=== PATIENT | male | born 1990 | race Hispanic/Latino ===

== ENCOUNTER 2019-08-28 00:59 | Emergency (ER) | payer SELFPAY ==
[2019-08-28] MEDS ORDERED: SODIUM CHLORIDE 0.9% 1000 ML 1,000 ML IV ONE (01:48)
[2019-08-28] MEDS ORDERED: ONDANSETRON 4 MG/2 ML INJ IV ONE (01:48)
--- NOTE | 2019-08-28 01:54 | Emergency Department Report ---
HPI - General Chief Complaint: Nausea/Vomiting/Diarrhea Time Seen by Provider: 08/28/19 01:42 - HPI HPI: Room 24 The patient is a 29-year-old male presenting with a chief complaint of heroin use. The patient was reportedly at work and began vomiting and Tota supervising did not feel well so somebody called 911. The patient states that he was "high." When asked how his feeling down the patient smiles and states he feels like dancing. The patient states he is "done with drugs." Patient requests detox. Patient remembers vomiting at work but denies nausea currently Location: [See above] Duration: [See above] Quality: [See above] Severity: [See above] Timing: [See above] Context: [See above] Modifying factors: [See above] Associated signs and symptoms: [see above] ED Past Medical Hx - Past Medical History Additional medical history: Lhxns-Bilampuzf-Lfobn status post ablation - Surgical History Additional Surgical History: Cardiac ablation - Family History Family history: no significant - Social History Smoking Status: Current Every Day Smoker (4 cigarettes daily) Substance Use Type: Heroin (snorts) - Medications Home Medications: Home Medications Medication Instructions Recorded Confirmed Last Taken Type Unobtainable 08/29/19 08/29/19 Unknown History ED Review of Systems ROS: Stated complaint: LETHARGIC Other details as noted in HPI Constitutional: no symptoms reported Eyes: denies: eye pain ENT: denies: throat pain Respiratory: no symptoms reported Cardiovascular: denies: chest pain Endocrine: no symptoms reported Gastrointestinal: nausea, vomiting Physical Exam - Physical Exam Physical Exam: GENERAL: The patient is well-developed well-nourished male lying on stretcher not appearing to be in acute distress. Patient appears under the influence of controlled substances HEENT: Normocephalic. Atraumatic. Extraocular motions are intact. Patient has moist mucous membranes. NECK: Supple. Trachea midline CHEST/LUNGS: Clear to auscultation. There is no respiratory distress noted. HEART/CARDIOVASCULAR: Regular. There is no tachycardia. There is no gallop rub or murmur. ABDOMEN: Abdomen is soft, nontender. Patient has normal bowel sounds. There is no abdominal distention. SKIN: There is no rash. There is no edema. There is no diaphoresis. NEURO: The patient is awake and oriented. The patient is cooperative. The patient has no focal neurologic deficits. The patient has normal speech MUSCULOSKELETAL: There is no evidence of acute injury. ED Medical Decision Making - Lab Data Result diagrams: 08/28/19 02:00 08/28/19 02:00 - EKG Data -: EKG Interpreted by Me EKG shows normal: sinus rhythm Rate: tachycardia (117 bpm) - EKG Data When compared to previous EKG there are: previous EKG unavailable Interpretation: nonspecific ST-T wave lena - Differential Diagnosis heroin abuse Critical care attestation.: If time is entered above; I have spent that time in minutes in the direct care of this critically ill patient, excluding procedure time. ED Disposition Clinical Impression: Heroin abuse Disposition: DC-01 TO HOME OR SELFCARE Is pt being admited?: No Does the pt Need Aspirin: No Condition: Stable Referrals: PRIMARY CARE, [Primary Care Provider] - 3[facility] Days [facility]
[2019-08-28 02:17] LABS: Basophils % (Auto) 0.2 % (0.0-1.8); Eosinophils % (Auto) 0.1 % (0.0-4.3); Hematocrit 43.4 % (35.5-45.6); Hemoglobin 14.6 gm/dl (11.8-15.2); Lymphocytes # (Auto) 1.1 K/mm3 (1.2-5.4); Lymphocytes % (Auto) 7.7 % (13.4-35.0); Mean Corpuscular HGB Conc 34 % (32-34); Mean Corpuscular Volume 99 fl (84-94); Monocytes # (Auto) 0.8 K/mm3 (0.0-0.8); Monocytes % (Auto) 5.6 % (0.0-7.3); Platelet Count 175 K/mm3 (140-440); Red Blood Count 4.41 M/mm3 (3.65-5.03); Red Cell Distribution Width 13.6 % (13.2-15.2)
[2019-08-28 02:40] LABS: BUN/Creatinine Ratio 14; Blood Urea Nitrogen 10 mg/dL (9-20); Calcium 8.6 mg/dL (8.4-10.2); Hemolysis Index 6
[2019-08-28 05:09] VITALS: BP 144/86
== END 2019-08-28 07:25 | disposition home or self-care (01) ==
LOC: ED 00:59
DX: F11.10 Opioid abuse, uncomplicated (principal); R11.2 Nausea with vomiting, unspecified; F17.200 Nicotine dependence, unspecified, uncomplicated
CPT/HCPCS: 36415; 80048; 82550; 85025; 93005; 93010; 96361; 96374; 99284; J2405; J7030

== ENCOUNTER 2019-08-29 00:56 | Emergency (ER) | payer SELFPAY ==
--- NOTE | 2019-08-29 01:21 | Emergency Department Report ---
HPI - General Time Seen by Provider: 08/29/19 01:09 - HPI HPI: Room 10 The patient is a 29-year-old male presenting with chief complaint suicidal ideation. The patient states his felt suicidal for the past 2-4 hours. Patient states he attempted to drown himself by diving into water states he is unable to complete the act. Patient was seen by myself yesterday for nausea vomiting and heroin use. Patient did not have suicidal ideation at that time Location: [See above] Duration: [See above] Quality: [See above] Severity: [See above] Timing: [See above] Context: [See above] Modifying factors: [See above] Associated signs and symptoms: [see above] ED Past Medical Hx - Past Medical History Previous Medical History?: Yes Hx Psychiatric Treatment: Yes (depression, bipolar) Additional medical history: Fjlma-Evpzfyepn-Bnksb status post ablation - Surgical History Additional Surgical History: Cardiac ablation - Family History Family history: no significant - Social History Smoking Status: Current Every Day Smoker Substance Use Type: Alcohol, Heroin, Methamphetamines - Medications Home Medications: Home Medications Medication Instructions Recorded Confirmed Last Taken Type Unobtainable 08/29/19 08/29/19 Unknown History ED Review of Systems ROS: Stated complaint: MH EVAL/SUICIDAL IDEATIONS Other details as noted in HPI Constitutional: no symptoms reported Eyes: denies: eye pain ENT: denies: throat pain Respiratory: no symptoms reported Cardiovascular: denies: chest pain Endocrine: no symptoms reported Gastrointestinal: denies: abdominal pain Genitourinary: denies: dysuria Musculoskeletal: denies: back pain Neurological: denies: headache Psychiatric: suicidal thoughts Physical Exam - Physical Exam Vital Signs: Vital Signs 08/29/19 01:11 Temperature 97.5 F L Pulse Rate 78 Respiratory 16 Rate Blood Pressure 138/85 O2 Sat by Pulse 97 Oximetry Physical Exam: GENERAL: The patient is well-developed well-nourished male lying on stretcher appearing to be under the influence of an illicit substance. [] HEENT: Normocephalic. Atraumatic. Extraocular motions are intact. Patient has moist mucous membranes. NECK: Supple. Trachea midline CHEST/LUNGS: Clear to auscultation. There is no respiratory distress noted. HEART/CARDIOVASCULAR: Regular. There is no tachycardia. There is no gallop rub or murmur. ABDOMEN: Abdomen is soft, nontender. Patient has normal bowel sounds. There is no abdominal distention. SKIN: There is no rash. There is no edema. There is no diaphoresis. NEURO: The patient is awake, alert, and oriented. The patient is cooperative. The patient has normal speech MUSCULOSKELETAL: There is no evidence of acute injury. ED Course Vital Signs 08/29/19 01:11 Temperature 97.5 F L Pulse Rate 78 Respiratory 16 Rate Blood Pressure 138/85 O2 Sat by Pulse 97 Oximetry ED Medical Decision Making - Lab Data Result diagrams: 08/29/19 01:37 08/29/19 01:37 Laboratory Tests 08/29/19 08/29/19 08/29/19 01:37 01:37 01:37 WBC 15.3 H RBC 4.67 Hgb 15.4 H Hct 45.9 H MCV 98 H MCH 33 H MCHC 34 RDW 14.2 Plt Count 190 Lymph % (Auto) 14.2 [place] % (Auto) 7.4 H Eos % (Auto) 0.2 Baso % (Auto) 0.2 Lymph # 2.2 [place] # 1.1 H Eos # 0.0 Baso # 0.0 Seg Neutrophils % 78.0 H Seg Neutrophils # 11.9 H Sodium 138 Potassium 4.0 Chloride 97.0 L Carbon Dioxide 24 Anion Gap 21 BUN 13 Creatinine 0.5 L Estimated GFR > 60 BUN/Creatinine Ratio 26 Glucose 43 L Calcium 8.9 Total Bilirubin 0.50 AST 83 H ALT 26 Alkaline Phosphatase 73 Total Protein 7.6 Albumin 4.6 Albumin/Globulin Ratio 1.5 Salicylates < 0.3 L Acetaminophen Plasma/Serum Alcohol 08/29/19 08/29/19 01:37 01:37 WBC RBC Hgb Hct MCV MCH MCHC RDW Plt Count Lymph % (Auto) [place] % (Auto) Eos % (Auto) Baso % (Auto) Lymph # [place] # Eos # Baso # Seg Neutrophils % Seg Neutrophils # Sodium Potassium Chloride Carbon Dioxide Anion Gap BUN Creatinine Estimated GFR BUN/Creatinine Ratio Glucose Calcium Total Bilirubin AST ALT Alkaline Phosphatase Total Protein Albumin Albumin/Globulin Ratio Salicylates Acetaminophen < 5.0 L Plasma/Serum Alcohol 0.05 - Differential Diagnosis suicidal ideation Critical care attestation.: If time is entered above; I have spent that time in minutes in the direct care of this critically ill patient, excluding procedure time. ED Disposition Clinical Impression: Heroin abuse, Suicidal ideation Disposition: DC/TX-65 PSY HOSP/PSY UNIT Is pt being admited?: No Does the pt Need Aspirin: No Condition: Serious Time of Disposition: 03:00 (awaiting acceptance)
[2019-08-29 01:52] LABS: Basophils % (Auto) 0.2 % (0.0-1.8); Eosinophils % (Auto) 0.2 % (0.0-4.3); Hematocrit 45.9 % (35.5-45.6); Hemoglobin 15.4 gm/dl (11.8-15.2); Lymphocytes # (Auto) 2.2 K/mm3 (1.2-5.4); Lymphocytes % (Auto) 14.2 % (13.4-35.0); Mean Corpuscular HGB Conc 34 % (32-34); Mean Corpuscular Volume 98 fl (84-94); Monocytes # (Auto) 1.1 K/mm3 (0.0-0.8); Monocytes % (Auto) 7.4 % (0.0-7.3); Platelet Count 190 K/mm3 (140-440); Red Blood Count 4.67 M/mm3 (3.65-5.03); Red Cell Distribution Width 14.2 % (13.2-15.2)
[2019-08-29 02:15] LABS: Alanine Aminotransferase 26 units/L (7-56); Albumin 4.6 g/dL (3.9-5); BUN/Creatinine Ratio 26; Blood Urea Nitrogen 13 mg/dL (9-20); Calcium 8.9 mg/dL (8.4-10.2); Hemolysis Index 4
[2019-08-29 03:53] LABS: Bilirubin,Urine NEG (Negative); Blood,Urine SM (Negative); Color,Urine Yellow (Yellow); Mucus,Urine FEW /HPF; Protein,Urine <15 mg/dL mg/dL (Negative); Urobilinogen,Urine < 2.0 mg/dL (<2.0)
[2019-08-29 03:58] LABS: Amphetamine Screen,Urine PRESUMPTIVE NEGATIVE; Benzodiazepines Screen,Urine PRESUMPTIVE NEGATIVE; Cocaine Screen,Urine PRESUMPTIVE NEGATIVE; Methadone Screen,Urine PRESUMPTIVE NEGATIVE; Opiate Screen,Urine PRESUMPTIVE NEGATIVE
[2019-08-29 04:16] LABS: Cannabinoid Screen,Urine PRESUMPTIVE POSITIVE
--- NOTE | 2019-08-29 14:16 | Consultation ---
History of Present Illness - Reason for Consult Consult date: 08/29/19 Reason for consult: Mental health Evaluation Requesting physician: NATHALIA FUNEZ - Chief Complaint Chief complaint: " I keep messing up" - History of Present Psychiatric Illness Patient is a 29 y/o male who presents to the ER after being [facility] of [facility]. Patient was in [facility] in [place], [place] and was kicked out after being there for almost a week and then he placed over here and was here for 4 or 5 days and used a small dose of heroine and was kicked out. He has since been using ETOH and cough syrup to self medicate. 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 He has a mother and sister as his only support. He states he is suicidal with no specific plan. He reports having auditory and visual hallucinations..he states he feels as if he is in a fantasy world and nothing is real. Medications and Allergies Allergies Allergy/AdvReac Type Severity Reaction Status Date / Time No Known Allergies Allergy Unverified 08/29/19 01:17 Home Medications Medication Instructions Recorded Confirmed Last Taken Type Unobtainable 08/29/19 08/29/19 Unknown History Past psychiatric history - past Psychiatric treatment and history Psych: Anxiety, Addictions, Bipolar, Depression Mental Status Exam - Vital signs Last Vital Signs Temp 97.7 F 08/29/19 07:00 Pulse 85 08/29/19 07:00 Resp 18 08/29/19 07:00 BP 134/84 08/29/19 07:00 Pulse Ox 98 08/29/19 07:00 - Exam Orientation: place, person Affect: depressed, anxious Mood: sad, anxious Thought content: paranoia Thought Process: Circumstantial Perceptions: visual, auditory Speech: slow Concentration: distractible Motor activity: restless Memory: Intact Interaction: cooperative Results Result Diagrams: 08/29/19 01:37 08/29/19 01:37 Abnormal lab results 08/29/19 08/29/19 08/29/19 Range/Units 01:37 01:37 01:37 WBC 15.3 H (4.5-11.0) K/mm3 Hgb 15.4 H (11.8-15.2) gm/dl Hct 45.9 H (35.5-45.6) % MCV 98 H (84-94) fl MCH 33 H (28-32) pg [place] % (Auto) 7.4 H (0.0-7.3) % [place] # 1.1 H (0.0-0.8) K/mm3 Seg Neutrophils % 78.0 H (40.0-70.0) % Seg Neutrophils # 11.9 H (1.8-7.7) K/mm3 Chloride 97.0 L (98-107) mmol/L Creatinine 0.5 L (0.8-1.5) mg/dL Glucose 43 L (75-100) mg/dL AST 83 H (5-40) units/L Salicylates < 0.3 L (2.8-20.0) mg/dL Acetaminophen (10.0-30.0) ug/mL 08/29/19 Range/Units 01:37 WBC (4.5-11.0) K/mm3 Hgb (11.8-15.2) gm/dl Hct (35.5-45.6) % MCV (84-94) fl MCH (28-32) pg [place] % (Auto) (0.0-7.3) % [place] # (0.0-0.8) K/mm3 Seg Neutrophils % (40.0-70.0) % Seg Neutrophils # (1.8-7.7) K/mm3 Chloride (98-107) mmol/L Creatinine (0.8-1.5) mg/dL Glucose (75-100) mg/dL AST (5-40) units/L Salicylates (2.8-20.0) mg/dL Acetaminophen < 5.0 L (10.0-30.0) ug/mL All other labs normal. Assessment and Plan Assessment and plan: Impression Bipolar Disorder, Suicidal Ideation,Depression, anxiety We will restart patient on Depakote and Haldol Obtain depakote level Patient should be placed on Suicide Precautions. Patient should be made inpatient Status We will Staff with Dr. Chavez MD
[2019-08-29] MEDS: HALOPERIDOL 5 MG TAB PO SCH (22:35)
[2019-08-29] MEDS: DIVALPROEX DR 500 MG TAB PO SCH (22:35)
[2019-08-30] MEDS: DIVALPROEX DR 500 MG TAB PO SCH ×2 (11:00→21:52)
[2019-08-30] MEDS ORDERED: LORazepam 2 MG TAB PO PRN ×2 (19:29)
[2019-08-30] MEDS ORDERED: LORazepam 2 MG/ML VIAL IV PRN (19:29)
[2019-08-30] MEDS ORDERED: HALOPERIDOL LACTATE 5 MG/1 ML INJ IV PRN (19:29)
[2019-08-30] MEDS ORDERED: chlordiazePOXIDE 25 MG CAP PO PRN ×2 (19:29)
--- NOTE | 2019-08-30 19:34 | Progress Note ---
Subjective - Reason for Consult Consult date: 08/30/19 Reason for consult: Psychiatric Follow-up Requesting physician: NATHALIA FUNEZ - Chief Complaint Chief complaint: " I keep messing up" - History of Present Psychiatric Illness Patient is a 29 y/o male who presents to the ER after being [facility] out of [facility]. Patient was in [facility]ber living in [place], [place] and was kicked out after being there for almost a week and then he placed over here and was here for 4 or 5 days and used a small dose of heroine and was kicked out. He has since been using ETOH and cough syrup to self medicate. 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 He has a mother and sister as his only support. Patient reports that he spoke with his mother today and he f eels so hopeless and like a failure. He states he is suicidal with no specific plan. He reports having auditory and visual hallucinations..he states he feels as if he is in a fantasy world and nothing is real. Medications and Allergies Allergies Allergy/AdvReac Type Severity Reaction Status Date / Time No Known Allergies Allergy Unverified 08/29/19 01:17 Home Medications Medication Instructions Recorded Confirmed Last Taken Type Unobtainable 08/29/19 08/29/19 Unknown History Past psychiatric history - past Psychiatric treatment and history Psych: Anxiety, Addictions, Bipolar, Depression Mental Status Exam - Vital signs Last Vital Signs Temp 97.7 F 08/29/19 07:00 Pulse 85 08/29/19 07:00 Resp 18 08/29/19 07:00 BP 134/84 08/29/19 07:00 Pulse Ox 98 08/29/19 07:00 - Exam Orientation: place, person Affect: depressed, anxious Mood: sad, anxious Thought content: paranoia Thought Process: Circumstantial Perceptions: visual, auditory Speech: slow Concentration: distractible Motor activity: restless Memory: Intact Interaction: cooperative Results Result Diagrams: 08/29/19 01:37 08/29/19 01:37 Abnormal lab results 08/29/19 08/29/19 08/29/19 Range/Units 01:37 01:37 01:37 WBC 15.3 H (4.5-11.0) K/mm3 Hgb 15.4 H (11.8-15.2) gm/dl Hct 45.9 H (35.5-45.6) % MCV 98 H (84-94) fl MCH 33 H (28-32) pg [place] % (Auto) 7.4 H (0.0-7.3) % [place] # 1.1 H (0.0-0.8) K/mm3 Seg Neutrophils % 78.0 H (40.0-70.0) % Seg Neutrophils # 11.9 H (1.8-7.7) K/mm3 Chloride 97.0 L (98-107) mmol/L Creatinine 0.5 L (0.8-1.5) mg/dL Glucose 43 L (75-100) mg/dL AST 83 H (5-40) units/L Salicylates < 0.3 L (2.8-20.0) mg/dL Acetaminophen (10.0-30.0) ug/mL 08/29/19 Range/Units 01:37 WBC (4.5-11.0) K/mm3 Hgb (11.8-15.2) gm/dl Hct (35.5-45.6) % MCV (84-94) fl MCH (28-32) pg [place] % (Auto) (0.0-7.3) % [place] # (0.0-0.8) K/mm3 Seg Neutrophils % (40.0-70.0) % Seg Neutrophils # (1.8-7.7) K/mm3 Chloride (98-107) mmol/L Creatinine (0.8-1.5) mg/dL Glucose (75-100) mg/dL AST (5-40) units/L Salicylates (2.8-20.0) mg/dL Acetaminophen < 5.0 L (10.0-30.0) ug/mL All other labs normal. Mental Status Exam - Vital signs Last Vital Signs Temp 97.9 F 08/30/19 13:00 Pulse 97 H 08/30/19 13:00 Resp 18 08/30/19 13:00 BP 124/87 08/30/19 13:00 Pulse Ox 100 08/30/19 13:00 - Exam Orientation: time, place, person Affect: depressed, anxious, agitated Mood: hopeless, congruent with affect, sad, anxious Thought Process: Circumstantial Perceptions: none Speech: slow Concentration: distractible Motor activity: restless Level of consciousness: alert Memory: Intact Sleep Symptoms: Difficulty Falling Asleep Interaction: cooperative Assessment and Plan Impression Bipolar Disorder, Suicidal Ideation,Depression, anxiety We will restart patient on Depakote and Haldol CIWA started Obtain depakote level Patient should be placed on Suicide Precautions. Patient should be made inpatient Status We will Staff with Dr. Chavez MD
[2019-08-30] MEDS: HALOPERIDOL 5 MG TAB PO SCH (21:52)
[2019-08-30 22:00] LABS: Alanine Aminotransferase 23 units/L (7-56); BUN/Creatinine Ratio 21; Blood Urea Nitrogen 15 mg/dL (9-20); Hemolysis Index 46
[2019-08-30 22:01] LABS: Bilirubin,Direct < 0.2 mg/dL (0-0.2)
[2019-08-30] MEDS: amLODIPine 10 MG TAB PO SCH (22:47)
--- NOTE | 2019-08-31 09:26 | Progress Note ---
Subjective - Reason for Consult Consult date: 08/31/19 Reason for consult: Psychiatry Follow-up - Chief Complaint Chief complaint: "i have to do better" 29 y.o. white male who presented to the ER for SI;' without a plan. Today the patient was calm and cooperative during the assessment. He stated that he want help for his substance abuse and feel "a little better today. He stated that he want to return to [facility], but is aware that he must stop with his substance abuse. He stated that his SI's have decreased when asked. He denies HI's and AVH's. He denies any side effects from his medication. Mental Status Exam - Vital signs Last Vital Signs Temp 98.1 F 08/30/19 21:12 Pulse 104 H 08/30/19 21:12 Resp 18 08/30/19 21:12 BP 160/93 08/30/19 21:12 Pulse Ox 96 08/30/19 21:12 - Exam Narrative exam: MSE: Appearance: calm, cooperative Behavior: regular eye contact Speech: regular rate and tone Mood: "better" Affect: congruent to mod Thought Process: circumstantial Thought Content: denies HI's and AVH's Motor Activity: ambulatory Cognition: A/O x 3 Insight: variable to fair Judgment: variable Assessment and Plan Impression: Hx of Bipolar DO/Substance Abuse. Cannabis Use DO. Today the patient was calm and cooperative during the assessment. DDx: Substance Induced Mood DO Recommendation/Plan: Reevaluate the patient's 1013 in 24 hours. Continue Depakote 500 mg PO BID for mood. Dispo: If the patient's 1013 is rescinded, he can follow up with [facility] for outpatient psy services. Will staff with Dr Trinh Byrne.
[2019-08-31] MEDS: DIVALPROEX ER 500 MG TAB PO SCH ×2 (10:50→22:22)
[2019-08-31] MEDS: amLODIPine 10 MG TAB PO SCH (11:28)
[2019-08-31] MEDS ORDERED: MIRTAZAPINE 15 MG TAB PO SCH (22:00)
--- NOTE | 2019-09-01 09:08 | Progress Note ---
Subjective - Reason for Consult Consult date: 09/01/19 Reason for consult: Psychiatry Follow-up - Chief Complaint Chief complaint: "I will go to [facility]"" 29 y.o. white male who presented to the ER for SI;' without a plan. Today the patient was calm and cooperative during the assessment. He stated that he plan to return to [facility] once discharged. He stated that he will follow up with outpatient psy/rehab services as well. He denies SI/HI's and AVH's. He denies any side effects from his medication. Mental Status Exam - Vital signs Last Vital Signs Temp 97.3 F L 09/01/19 08:00 Pulse 84 09/01/19 08:00 Resp 15 09/01/19 08:00 BP 118/84 09/01/19 08:00 Pulse Ox 98 09/01/19 08:00 - Exam Narrative exam: MSE: Appearance: calm, cooperative Behavior: regular eye contact Speech: regular rate and tone Mood: "okay" Affect: congruent to mod Thought Process: circumstantial Thought Content: denies SI/HI's and AVH's Motor Activity: ambulatory Cognition: A/O x 3 Insight: fair Judgment: fair Assessment and Plan Impression: Hx of Bipolar DO/Substance Abuse. Cannabis Use DO. Today the patient was calm and cooperative during the assessment. The patient is no threat to self. DDx: Substance Induced Mood DO Recommendation/Plan: Rescind 1013. Continue Depakote 500 mg PO BID for mood. Discussed the importance to abstain from recreational drug use with the patient, he verbalized understanding. Dispo: The patient can follow [facility] for inpatient psy services. Will staff with Dr Trinh Byrne.
[2019-09-01] MEDS: amLODIPine 10 MG TAB PO SCH (09:36)
[2019-09-01] MEDS: DIVALPROEX ER 500 MG TAB PO SCH (09:36)
[2019-09-01 09:37] VITALS: BP 138/89
== END 2019-09-01 13:30 | disposition home or self-care (01) ==
LOC: ED 00:56 → EEVIPCON 00:56 → ED 09-01 13:30
DX: F41.9 Anxiety disorder, unspecified (principal); F32.9 Major depressive disorder, single episode, unspecified; R45.851 Suicidal ideations; F17.200 Nicotine dependence, unspecified, uncomplicated; F11.10 Opioid abuse, uncomplicated; F15.10 Other stimulant abuse, uncomplicated
CPT/HCPCS: 36415; 80048; 80053; 80076; 80164; 80307; 80320; 81001; 82150; 83690; 83735; 84100; 85025; G0480